=== PATIENT | female | born 1970 | race Caucasian/White ===

== ENCOUNTER 2025-02-01 00:23 | Day surgery (SDC) | payer BC, SELFPAY ==
[2025-01-15 08:20] VITALS: BMI 31.1
--- OUTSIDE RECORDS SUMMARY | 2025-02-01 00:27 | XMS_ITS | Clinical Summary ---
Author Organization [facility] Address [address] [place] [id number] Care Team Providers Care Higher Level Teaching Assistant Name Role Phone None, Provider MD Primary Care Provider Unavaila ble Allergies No known active allergies Medications acetaminophen (TYLENOL) 500 MG tablet Take 2 tablets (1,000 mg total) by mouth every 6 (six) hours as needed for Fever. 30 tablet 08/04/2020 Active azithromycin (ZITHROMAX) 250 MG tabletIndicatio ns:Bronchitis Take 2 tablets by mouth on day one then 1 daily for four days. 6 tablet 04/08/2024 Active Active Problems Problem Noted Date Diagnosed Date Medial epicondylitis 11/28/2011 Immunizations Immunization Administration Dates Next Due Influenza Adult (Generic) 11/14/2023,12/13/2020, 11/30/2019 Shingrix 02/29/2020,11/30/2019 Family History Medical History Relation Comments Breast Cancer Neg Hx Social History Tobacco Use Types Packs/Day Years Used Date Smoking Tobacco: Former Cigarettes Passive Smoke Exposure: Current Smokeless Tobacco: Never Tobacco Cessation:Counseling Given: No Alcohol Use Standard Drinks/Week Comments Yes 0 (1 standard drink = 0.6 oz pur e alcohol) PHQ-2 Answer Date Recorded Patient Health Questionnaire-2 Score 0 04/08/2024 Comments No Sex and Gender Information Value Date Recorded Sex Assigned at Not on file Legal Sex Female 8:15 PM CDT Gender Identity Not on file Sexual Orientation Not on file Last Filed Vital Signs Vital Sign Reading Time Taken Comments Blood Pressure 122/80 04/08/2024 8:20 AM HEAD CHOPPER Pulse 91 04/08/2024 8:20 AM HEAD CHOPPER Temperature 36.6 C (97.9 F) 04/08/2024 8:20 AM HEAD CHOPPER Respiratory Rate 20 04/08/2024 8:20 AM HEAD CHOPPER Oxygen Saturation 100% 04/08/2024 8:20 AM HEAD CHOPPER Inhaled Oxygen Concentration - - Weight 94.8 kg (209 lb) 04/08/2024 8:20 AM HEAD CHOPPER Height 172.7 cm (5' 8) 04/08/2024 8:20 AM HEAD CHOPPER Body Mass Index 31.78 04/08/2024 8:20 AM HEAD CHOPPER Plan of Treatment Health Maintenance Due Date Last Done Comments Cervical Cancer Screening Pap Smear (Age 30 to 64) Every 3 Years 1969 Colorectal Cancer Screening Colonoscopy (10 Years) 1969 Annual Physical 1972 Hepatitis C 10/31/1987 DTaP, Tdap and Td Vaccines (1 - Tdap) 1988 Hepatitis B Vaccines (1 of 3 - 19+ 3-dose series) 1988 Cervical Cancer Screening Pap with HPV Testing (Age 30 to 64) Every 5 Years 10/31/1999 Cervical Cancer Screening with HPV 10/31/1999 Pneumococcal Vaccine: 50+ Years (1 of 1 - PCV) 10/31/2019 COVID-19 Vaccine ( season) 2024 07/11/2021, 02/06/2021, 06/12/2020, Additional history exists Influenza Adult (#1) 2024 11/14/2023, 12/13/2020, 11/30/2019 Mammogram Screening 02/20/2026 02/21/2024, 02/14/2024, 01/23/2023 Zoster Vaccines Completed 02/29/2020, 11/30/2019 PHQ-2 (Physician Koi) Completed 04/08/2024 Hepatitis A Vaccines Aged Out No long er eligible based on patient's age to complete this topic Meningococcal B Vaccine Aged Out No l onger eligible based on patient's age to complete this topic Meningococcal Vaccine Aged Out No marleni devin eligible based on patient's age to complete this topic RSV Immunizations Under 20 Months Aged Out No longer eligible based on patient's age to complete this topic Procedures Procedure Name Priority Date/Time Associated Diagnosis Comments MG ROSYG W TOM RT DIGI Routine 02/21/2024 3:08 PM HEAD CHOPPER Abnormal mammogram from Last 3 Months or Most Recently Relevant to Health Maintenance Results * MG DIAG W TOM RT DIGI (02/21/2024 3:08 PM HEAD CHOPPER) Anatomical Region Laterality Modality Breast Right Mammography 02/21/2024 2:47 PM HEAD CHOPPER Impressions 02/21/2024 2:48 PM HEAD CHOPPER ===== IMPRESSION: ===== 1. No mammographic evidence of malignancy. Assessment: ACR BI-RADS 2 - BENIGN FINDING(S) Recommendation: 1:Routine Screening Bilateral Comments: Ordered By: BREANNA MULLINS Interpreted By: Pat Sams, 02/21/2024 2:47 PM Narrative 02/21/2024 2:48 PM HEAD CHOPPER [facility] [address] [place] [address] EXAMINATION: Digital right diagnostic mammogram with 3-D tomosynthesis EXAM DATE/TIME: 02/21/2024 2:00 PM REASON FOR EXAM: abnormal mammogram COMPARISON: 02/14/2024. 01/23/2023 TECHNIQUE: Digital diagnostic mammography of the right breast was performed in addition to 3-D Tomosynthesis technique. This study was read with the assistance of a computer-aided detection system. TISSUE DENSITY: The breasts are heterogeneously dense, which may obscure small masses. Findings: Prior asymmetric tissue in the upper outer quadrant of the right breast is due to parenchymal overlap.. No underlying mass. No malignant microcalcifications. us Breanna Mullins DO MAMMO Final Resul t from Last 3 Months or Most Recently Relevant to Health Maintenance Insurance [facility] Care Teams Higher Level Teaching Assistant Relationship Specialty Start Date End Date None, Provider, PCP - General UNKNOWN PHYSICIAN SPECIALTY 12/10/23
[2025-02-01 09:34] VITALS: BP 155/83; PULSE 68; RESP 18; TEMP 36.1; O2SAT 100; BMI 32.5
--- NOTE | 2025-02-01 09:37 | WPDANESEPPF ---
Anes - Initial Pre Proc Eval Procedure: Operation Date: 02/01/25 10:30 Proposed Procedures p Screening Colonoscopy - Abraham Sena MD Date/Time: 02/01/25 09:37 Surgeon: Abraham Sena MD Pre Op Diagnosis: Screening Patient Data Age: 54 Gender: F Height: 1.73 m Weight: 97.2 kg Last Vital Signs Temp 36.1 C L 02/01/25 09:34 Pulse 68 02/01/25 09:34 Resp 18 02/01/25 09:34 BP 155/83 H 02/01/25 09:34 Pulse Ox 100 02/01/25 09:34 O2 Del Method Room Air 02/01/25 09:34 Allergies Allergy/AdvReac Type Severity Reaction Status Date / Time No Known Allergies Allergy Mild Verified 02/01/25 09:33 Home Medications ?Medication ?Instructions ?Recorded ?Confirmed ?Type ascorbic acid (vitamin C) 500 mg mg PO 12/28/21 11/26/24 History capsule cholecalciferol (vitamin D3) 50 50 mcg PO DAILY 12/28/21 02/01/25 History mcg (2,000 unit) capsule omega 3-dha 25 mg-epa 5 mg-fish 1 tablet PO DAILY 12/28/21 02/01/25 History oil 113.5 mg chewable tablet psyllium husk 0.52 gram capsule 0.52 g PO DAILY 12/28/21 02/01/25 History (Daily Fiber) fluconazole 150 mg tablet 150 mg PO DAILY #1 tablet 11/26/24 02/01/25 Rx Patient hx anesthesia problems: none Family hx anesthesia problems: none Results Review: All pre-operative results and documents have been reviewed as part of the pre-operative evaluation. [facility] Past Medical History Medical History (Updated 02/01/25 @ 08:00 by Jonatan Saravia DO) Diverticulitis Otitis externa Acute otitis media Migraines Surgical History Surgical History S/P endometrial ablation H/O tubal ligation Family History Family History Father COPD (chronic obstructive pulmonary disease) CHF (congestive heart failure), NYHA class I Mother Cerebrovascular accident Grandparent Diabetes mellitus Social History Social History Smoking status: Never smoker Alcohol intake: current Drinks per week: 3 Substance use: never Substance use type: does not use Living arrangements: with family Occupation/Education: occupation 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 Informed Consent: The patient's anesthetic plan and its attendant risks and benefits were discussed with the patient/family/POA. Questions were solicited and answers provided to the satisfaction of the patient/family/POA.
[2025-02-01] MEDS: LACTATED RINGERS 1,000 ML 150 ML IV CONT (09:42)
--- NOTE | 2025-02-01 10:36 | PM.HPGS ---
History of Present Illness History of Present Illness Consent: Risks, benefits, and alternatives have been discussed and questions answered. Patient agrees to proceed with procedure. Chief complaint: Screening Narrative: Katey Rosales is a 54 year old female here for screening colonoscopy Review of Systems Review of Systems: All systems reviewed & are unremarkable except as noted in HPI and below PMFSH Past Medical History Medical History (Updated 02/01/25 @ 10:37 by Abraham Sena MD) Colon cancer screening Diverticulitis Otitis externa Acute otitis media Migraines Surgical History Surgical History S/P endometrial ablation H/O tubal ligation Family History Family History Father COPD (chronic obstructive pulmonary disease) CHF (congestive heart failure), NYHA class I Mother Cerebrovascular accident Grandparent Diabetes mellitus Social History Social History Smoking status: Never smoker Alcohol intake: current Drinks per week: 3 Substance use: never Substance use type: does not use Living arrangements: with family Occupation/Education: occupation 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[employer] Spiritual care concerns: No Meds Home Medications and Allergies Home Medications ?Medication ?Instructions ?Recorded ?Confirmed ?Type ascorbic acid (vitamin C) 500 mg mg PO 12/28/21 11/26/24 History capsule cholecalciferol (vitamin D3) 50 50 mcg PO DAILY 12/28/21 02/01/25 History mcg (2,000 unit) capsule omega 3-dha 25 mg-epa 5 mg-fish 1 tablet PO DAILY 12/28/21 02/01/25 History oil 113.5 mg chewable tablet psyllium husk 0.52 gram capsule 0.52 g PO DAILY 12/28/21 02/01/25 History (Daily Fiber) fluconazole 150 mg tablet 150 mg PO DAILY #1 tablet 11/26/24 02/01/25 Rx Allergies Allergy/AdvReac Type Severity Reaction Status Date / Time No Known Allergies Allergy Mild Verified 02/01/25 09:33 Vital Signs Vital Signs - 24 hr 02/01/25 09:34 Temperature 97 F L Pulse Rate 68 Respiratory Rate 18 Blood Pressure 155/83 H Pulse Oximetry 100 Oxygen Delivery Room Air Exam Const: General: comfortable and no acute distress HENMT: Face/Nose/Sinus: Normal nares present Eyes: General: appearance normal, both eyes and all related structures Neck: Neck: no JVD Resp: Auscultation: clear to auscultation bilaterally Cardio: Rate: regular rate Rhythm: regular rhythm GI: Inspection: non-distended GI Palp: Yes Soft to palpation Skin: General skin exam: normal color Extrem: General: normal to inspection Psych: Mental Status: mental status grossly normal Assessment and Plan Assessment and plan (1) Colon cancer screening: Code(s): Z12.11 - Encounter for screening for malignant neoplasm of colon Status: Acute Assessment and Plan: colonoscopy
--- NOTE | 2025-02-01 10:50 | S_PTH ---
PATIENT: Katey Rosales LOC: [facility]#:[id number] AGE/SX: 54/F ROOM: RE02/01/[address]: Abraham Sena MD : 1970 BED: DIS: 02/01/2025 SPEC #: [id number] RECD: 02/01/25 11:50 STATUS: AIMEE RECarole #: [id number] SHERINE: 02/01/25 10:[address]: Abraham Sena DEPT: [facility] Surgical RECD BY: Landy Persaud ENTERED: 02/01/25 11:50 SP TYPE: Surgical OTHR DR: Francoise Shi, DEVI Tissues: A - Colon Polypectomy Procedures: Hematoxylin and Eosin Stain Gross and Microscopic Level 4
[2025-02-01 10:56] VITALS: BP 122/72; PULSE 66; RESP 16; O2SAT 99
[2025-02-01 11:06] VITALS: BP 125/78; PULSE 59; RESP 19; O2SAT 99
[2025-02-01 11:16] VITALS: BP 140/86; PULSE 60; RESP 16; O2SAT 99
== END 2025-02-01 11:20 | disposition home or self-care (01) ==
PROVIDERS: PCP Nurse Practitioner Family; Referring Provider Nurse Practitioner Family; Visit Provider Internal Medicine Gastroenterology
PROC: 0DJD8ZZ Inspection of Lower Intestinal Tract, Via Natural or Artificial Opening Endoscopic (ICD-10-PCS; CPT 45378; principal; 2025-02-01 10:30)
DX: Z12.11 Encounter for screening for malignant neoplasm of colon (principal); D12.3 Benign neoplasm of transverse colon; K63.89 Other specified diseases of intestine; K57.30 Diverticulosis of large intestine without perforation or abscess without bleeding; K64.8 Other hemorrhoids; E66.9 Obesity, unspecified; Z68.32 Body mass index [BMI] 32.0-32.9, adult
CPT/HCPCS: 45380; 88305; J2003; J2704; J7120